=== PATIENT | female | born 1950 | race Caucasian/White ===

== ENCOUNTER → 2017-09-14 | Day surgery (SDC) | payer OTHER ==
[~2017-09-14] MED LIST: LIDOCAINE 1% 300 MG/30 ML SDV SC ONE
--- NOTE | 2017-09-15 10:26 | EPPROC ---
Electrophysiology Procedure Note: Procedure: LINQ explant Indication: Need for LINQ complete Procedure: Parts prepared and draped. LA given. Incision placed. Using usual technique, LINQ explanted. Melia placed. Dry sterile dressing placed. pt left the CVC in stable condition. Conclusion: Successful LINQ explant
== END | disposition home or self-care (01) ==
LOC: FCATH 11:28
PROVIDERS: ATTEND Internal Medicine Cardiovascular Disease
PROC: 0JPT02Z Removal of Monitoring Device from Trunk Subcutaneous Tissue and Fascia, Open Approach (ICD-10-PCS; principal; 2017-09-14)
DX: Z45.09 Encounter for adjustment and management of other cardiac device (principal); I47.1 Supraventricular tachycardia; I10 Essential (primary) hypertension; Z86.73 Personal history of transient ischemic attack (TIA), and cerebral infarction without residual deficits